=== PATIENT | female | born 1990 | race Two or more races ===

== ENCOUNTER 2016-04-17 09:17 | Emergency (ER) | payer BC, OTHER ==
--- NOTE | 2016-04-17 12:49 | ER Document Report ---
HPI - HPI Patient complains to provider of: dental pain Onset: This morning Onset/Duration: Sudden Quality of pain: Achy Severity: Severe Pain Level: 4 Context: Patient presents to the emergency department with complaints of dental pain that started early this morning. She denies vomiting diarrhea reports fever low -grade. She never took her temperature. She also reports that she does have dental insurance. Patient opens mouth wide no obvious signs of infection. Patient does have a ride home. Associated Symptoms: None Exacerbated by: Denies Relieved by: Denies Similar symptoms previously: No Recently seen / treated by doctor: No - DERM Skin Color: Normal Past Medical History - General Information source: Patient Last Menstrual Period: 11/2 weeks ago - Social History Smoking Status: Current Every Day Smoker Cigarette use (# per day): Yes - 1pp2d Chew tobacco use (# tins/day): No Frequency of alcohol use: None Drug Abuse: None Family History: None Patient has suicidal ideation: No Patient has homicidal ideation: No - Medical History Medical History: Negative Renal/ Medical History: Denies: Hx Peritoneal Dialysis Past Surgical History: Reports: Hx Cholecystectomy Vertical Provider Document - CONSTITUTIONAL Agree With Documented VS: Yes Exam Limitations: No Limitations General Appearance: WD/WN, No Apparent Distress - nontoxic looking - INFECTION CONTROL TRAVEL OUTSIDE OF THE [place] IN LAST 30 DAYS: No - HEENT HEENT: Atraumatic, Normocephalic. negative: Pharyngeal Exudate, Pharyngeal Erythema Mouth Diagram: 1 - c/o pain, no obvious signs of infection, no erythema/no swelling, no pustule, No peritonsillar abscess good clear voice no trismus, - NECK Neck: Normal Inspection, Supple. negative: Lymphadenopathy-Left, Lymphadenopathy-Right - RESPIRATORY Respiratory: Breath Sounds Normal, No Respiratory Distress O2 Sat by Pulse Oximetry: 98 - CARDIOVASCULAR Cardiovascular: Regular Rate, Regular Rhythm - GI/ABDOMEN Gastrointestinal: Abdomen Soft, Abdomen Non-Tender - MUSCULOSKELETAL/EXTREMETIES Musculoskeletal/Extremeties: MAEW, FROM - NEURO Level of Consciousness: Awake, Alert, Appropriate Motor/Sensory: No Motor Deficit - DERM Integumentary: Warm, Dry Course - Re-evaluation Re-evalutation: 04/17/16 12:59 Patient with good airway no obvious signs of infection. Instructed on importance of follow-up with dental. Instructed on medications verbalized understanding - Vital Signs Vital signs: Temp Pulse Resp BP Pulse Ox 98.2 F 86 16 118/75 98 04/17/16 09:30 04/17/16 09:30 04/17/16 09:30 04/17/16 09:30 04/17/16 09:30 Discharge - Discharge Clinical Impression: Pain, dental Condition: Stable Disposition: HOME, SELF-CARE Instructions: Penicillin V K ([facility]), Toothache ([facility]), Dentist Additional Instructions: *You have been evaluated for dental pain *Take medications as prescribed *Take ibuprofen or tylenol as indicated for pain *Follow up with a dentist, call for appointment today *Return to ED for worsening condition, changes, needs Prescriptions: Penicillin V Potassium [Penicillin Vk 500 mg Tablet] 500 mg PO BID #20 tablet
[2016-04-17 12:58] VITALS: BP 122/60
[2016-04-17] MEDS ORDERED: OXYCODONE-ACETAMINOPHEN 5-325 MG TABLET PO ONE (13:02)
== END 2016-04-17 13:10 | disposition home or self-care (01) ==
LOC: ER 09:17
DX: K08.89 Other specified disorders of teeth and supporting structures (principal); F17.210 Nicotine dependence, cigarettes, uncomplicated
CPT/HCPCS: 99282

== ENCOUNTER 2016-05-06 15:18 | Emergency (ER) | payer BC ==
--- NOTE | 2016-05-06 15:24 | ER Document Report ---
ED Medical Screen (RME) - General Stated Complaint: TOOTH PAIN Mode of Arrival: Ambulatory Information source: Patient Notes: pt presents to the ED again for dental pain. Reports could not get in touch with her dentist. I have greeted and performed a rapid initial assessment of this patient. A comprehensive ED assessment and evaluation of the patient, analysis of test results and completion of the medical decision making process will be conducted by additional ED providers. TRAVEL OUTSIDE OF THE [place] IN LAST 30 DAYS: No - Related Data Allergies/Adverse Reactions: aspirin Allergy (Verified 04/17/16 09:35) Pertussis Vaccines Allergy (Verified 04/17/16 09:35) Past Medical History Renal/ Medical History: Denies: Hx Peritoneal Dialysis Past Surgical History: Reports: Hx Cholecystectomy
[2016-05-06] MEDS ORDERED: BUPIVACAINE HCL 0.5 % INJ/PF 30 ML SDV INJ ONE (17:55)
--- NOTE | 2016-05-06 18:06 | ER Document Report ---
ED Oral Problem - General Chief Complaint: Toothache Stated Complaint: TOOTH PAIN Mode of Arrival: Ambulatory Information source: Patient Notes: 25 y/o F presents to ED c/o left lower posterior dental pain. Pt reports has chipped and decayed molar for which she has been evaluated by oral surgeon last week and prescribed course of clindamycin and pain medication. States completed course of antibiotic as directed and has run out of pain medicine. States has follow-up appointment with oral surgeon in 5 days but could not wait until then. Denies fever, drainage, swelling, difficulty swallowing or breathing. TRAVEL OUTSIDE OF THE [place] IN LAST 30 DAYS: No - HPI Patient complains to provider of: Toothache Onset: Last week Onset: Gradual Quality of pain: Achy Severity: Moderate Pain Level: 4 Context: Fractured tooth Associated symptoms: Toothache Similar symptoms previously: Yes Recently seen / treated by doctor/dentist: Yes - Related Data Allergies/Adverse Reactions: aspirin Allergy (Verified 05/06/16 15:23) Pertussis Vaccines Allergy (Verified 05/06/16 15:23) Past Medical History - General Information source: Patient - Social History Smoking Status: Former Smoker Chew tobacco use (# tins/day): No Frequency of alcohol use: None Drug Abuse: None Lives with: Family Family History: Reviewed & Not Pertinent Patient has suicidal ideation: No Patient has homicidal ideation: No - Medical History Medical History: Negative Renal/ Medical History: Denies: Hx Peritoneal Dialysis Past Surgical History: Reports: Hx Cholecystectomy - Immunizations Hx Diphtheria, Pertussis, Tetanus Vaccination: Yes Review of Systems - Review of Systems Constitutional: No symptoms reported EENT: See HPI Cardiovascular: No symptoms reported Respiratory: No symptoms reported Gastrointestinal: No symptoms reported Genitourinary: No symptoms reported Female Genitourinary: No symptoms reported Musculoskeletal: No symptoms reported Skin: No symptoms reported Hematologic/Lymphatic: No symptoms reported Neurological/Psychological: No symptoms reported -: Yes All other systems reviewed and negative Physical Exam - Vital signs Vitals: Temp Pulse Resp BP Pulse Ox 97.6 F 86 16 117/74 99 05/06/16 15:24 05/06/16 15:24 05/06/16 15:24 05/06/16 15:24 05/06/16 15:24 - General General appearance: Appears well, Alert In distress: None - HEENT Head: Normocephalic, Atraumatic Eyes: Normal Conjunctiva: Normal Eyelashes: Normal Pupils: PERRL Ears: Normal External canal: Normal Tympanic membrane: Normal Sinus: Normal Nasal: Normal Mouth/Lips: Caries. No: Angioedema, Laceration, Lesions Mucous membranes: Normal, Moist Teeth diagram: 1 - localized tenderness with palpation. no swelling, drainage, or fluctuance Pharynx: Normal. No: Blood in hypopharynx, Erythema, Exudate, Peritonsillar abscess, Post nasal drainage, Retropharyngeal abscess, Tonsillar hypertrophy, Uvular edema, Potential airway comprom., Other Neck: Normal. No: Anterior cervical chain, Posterior cervical chain, Lymphadenopathy, Meningismus, Subcutaneous emphysema Course - Re-evaluation Re-evalutation: 05/06/16 18:30 Patient hemodynamically stable, in no distress. Analgesia provided with inferior alveolar block with 0.5% bupivicaine. Patient tolerated well without complications. No trismus, abscess, or suggestion of significant deep space or soft tissue infection at this time. Pt appears stable for discharge and agrees with home care, follow-up with dental provider on Sunday, and ED return precautions. - Vital Signs Vital signs: Temp Pulse Resp BP Pulse Ox 98 F 68 16 118/72 100 05/06/16 19:33 05/06/16 19:33 05/06/16 19:33 05/06/16 19:33 05/06/16 19:33 Discharge - Discharge Clinical Impression: Pain, dental Condition: Stable Disposition: HOME, SELF-CARE Additional Instructions: Dental Pain: Your pain is due to dental decay. The tooth must be repaired in order for you to feel better. You will, therefore, be referred to a dentist. We do not have dentists on the staff at [facility]. Severe swelling or drainage around a tooth usually means a dental abscess. This also requires evaluation and treatment by the dentist, but antibiotics may be prescribed while awaiting dental treatment. You should be rechecked immediately if you develop major swelling of the face, increasing pain, a lump in the jaw or gums, headache, difficulty swallowing, or fever. ORAL NARCOTIC MEDICATION: You have been given a prescription for pain control. This medication is a narcotic. It's best taken with food, as nausea can result if taken on an empty stomach. Don't operate machinery or drive within six hours of taking this medication. Do not combine this medicine with alcohol, or with any medication which can cause sedation (such as cold tablets or sleeping pills) unless you get permission from the physician. Narcotics tend to cause constipation. If possible, drink plenty of fluids and eat a diet high in fiber and fruits. Please be aware that prescription narcotics also have the potential for abuse. People become addicted to these medications because of the general sense of wellbeing that they induce. This feeling along with a significant reduction in tension, anxiety, and aggression provides a stimulating seductive quality to these drugs. Once your pain is under control, we encourage you to discard your unused narcotics. FOLLOW-UP CARE: Follow-up with your oral surgeon on Sunday. Return to the emergency department for any worsening symptoms or concerns. Referrals: RADHA LEWIS DDS [ACTIVE STAFF] - 05/08/16
[2016-05-06] MEDS ORDERED: HYDROCODONE/ACETAMINOPHEN 5-325 MG 6 TAB/DSPK PO PRN (18:30)
[2016-05-06 19:34] VITALS: BP 118/72
== END 2016-05-06 19:15 | disposition home or self-care (01) ==
LOC: ER 15:18
PROC: 3E0T3BZ Introduction of Anesthetic Agent into Peripheral Nerves and Plexi, Percutaneous Approach (ICD-10-PCS; principal; 2016-05-06)
DX: K08.89 Other specified disorders of teeth and supporting structures (principal); Z87.891 Personal history of nicotine dependence
CPT/HCPCS: 99282